=== PATIENT | male | born 1955 | race Caucasian/White ===

== ENCOUNTER → 2018-01-06 | Outpatient (CLI) | payer OTHER ==
--- NOTE | 2018-01-06 16:43 | RAD ---
2 views of the right foot compared to similar study dated August 28, 2013 for pain, diabetic ulcer on the heel. FINDINGS: There is no fracture, dislocation, or acute osseous abdomen identified. There is been amputation of the distal second and fifth digits. There is destructive and erosive change of the first metatarsophalangeal joint with marginal sclerosis and some overgrowth seen on the lateral projection. This is new compared to the prior study. A calcaneal bone spur is seen. Vascular calcifications are evident. IMPRESSION: 1. Extensive destructive changes of the first metatarsophalangeal joint with adjacent sclerosis and bony overgrowth. In the current clinical context, osteomyelitis should be considered. The absence of osteopenia may suggest burned-out or previously treated disease. Consider further evaluation with contrast-enhanced MRI. 2. Postsurgical changes of the second and fifth digits. 3. No acute osseous abdomen modality. Electronically signed by: Amanuel Damico MD (01/06/2018 4:39 PM) [id number]
== END ==
LOC: PMG 10:53
PROVIDERS: ATTEND Physician Assistant
DX: E11.621 Type 2 diabetes mellitus with foot ulcer (principal); L97.416 Non-pressure chronic ulcer of right heel and midfoot with bone involvement without evidence of necrosis; M86.8X7 Other osteomyelitis, ankle and foot; M77.31 Calcaneal spur, right foot
CPT/HCPCS: 73620

== ENCOUNTER → 2018-09-19 | Outpatient (CLI) | payer OTHER ==
--- NOTE | 2018-09-19 14:18 | CARD ---
MR#: [id number] Date of Study: 09/19/2018 Ordering Physician: GRACIELA ACUÑA, Referring Physician: GRACIELA ACUÑA, Tech: Reshma Higuera NATY APPROVED REPORT EXAM: Two-dimensional and M-mode echocardiogram with Doppler and color Doppler. Other Information Quality : AverageHR: 95bpm Rhythm : NSR INDICATION Cardiomyopathy 2D DIMENSIONS RVDd3.0 (2.9-3.5cm)Left Atrium(2D)4.0 (1.6-4.0cm) IVSd1.0 (0.7-1.1cm)Aortic Root(2D)3.0 (2.0-3.7cm) LVDd4.9 (3.9-5.9cm)LVOT Diameter2.1 (1.8-2.4cm) PWd0.8 (0.7-1.1cm)LVDs3.5 (2.5-4.0cm) FS (%) 28.6 %SV61.3 ml LVEF(%)55.0 (>50%) Aortic Valve AoV Peak Ted.118.4cm/sAoV VTI20.2cm AO Peak GR.5.6mmHgLVOT Peak Ted.82.1cm/s LVOT VTI 18.24cmAO Mean GR.3mmHg ABBY (VMAX)2.93rg7IYG (VTI)3.05cm2 Mitral Valve MV E Qpbdqiou13.5cm/sMV DECEL NSQR303qr MV A Mqycoevq11.4cm/sE/A Ratio1.3 Pulmonary Valve PV Peak Pmuwkdxt426.4cm/sPV Peak Grad.5mmHg LEFT VENTRICLE The left ventricle is normal size. There is normal left ventricular wall thickness. The left ventricu lar systolic function is normal and the ejection fraction is within normal range. The Ejection Fracti on is 55%. There is normal LV segmental wall motion. Transmitral Doppler flow pattern is Grade II-pse udonormal filling dynamics. RIGHT VENTRICLE The right ventricle is normal size. There is normal right ventricular wall thickness. The right ventr icular systolic function is normal. ATRIA The left atrium is borderline dilated. The right atrium is mildly dilated. The interatrial septum is intact with no evidence for an atrial septal defect or patent foramen ovale as noted on 2-D or Dopple r imaging. AORTIC VALVE The aortic valve is trileaflet. The aortic valve is mildly calcified. Doppler and Color Flow revealed no significant aortic regurgitation. There is no significant aortic valvular stenosis. There is no a ortic valvular vegetation. MITRAL VALVE The mitral valve is normal in structure and function. There is no evidence of mitral valve prolapse. There is no mitral valve stenosis. Doppler and Color-flow revealed trace to mild mitral regurgitation . TRICUSPID VALVE The tricuspid valve is normal in structure and function. Doppler and Color Flow revealed no tricuspid valve regurgitation noted. There is no tricuspid valve prolapse or vegetation. There is no tricuspid valve stenosis. PULMONIC VALVE Doppler and Color Flow revealed no pulmonic valvular regurgitation. There is no pulmonic valvular risa nosis. GREAT VESSELS The aortic root is normal in size. The ascending aorta is normal in size. The IVC is normal in size a nd collapses >50% with inspiration. PERICARDIAL EFFUSION There is no evidence of significant pericardial effusion. Critical Notification Critical Value: No <Conclusion> The left ventricular systolic function is normal and the ejection fraction is within normal range. Th e Ejection Fraction is 55%. There is normal LV segmental wall motion. Signed by : Graciela Acuña, Electronically Approved : 09/19/2018 14:18:25
== END | disposition home or self-care (01) ==
LOC: ECHO 13:32
PROVIDERS: ATTEND Internal Medicine Cardiovascular Disease
DX: I34.0 Nonrheumatic mitral (valve) insufficiency (principal); I25.5 Ischemic cardiomyopathy
CPT/HCPCS: 93306

== ENCOUNTER → 2019-10-09 | Outpatient (CLI) | payer OTHER ==
--- NOTE | 2019-10-09 12:15 | CARD ---
MR#: [id number] Date of Study: 10/09/2019 Ordering Physician: GRACIELA MONROY, Referring Physician: GRACIELA MONROY, Tech: Rebekah Baltazar APPROVED REPORT EXAM: Two-dimensional and M-mode echocardiogram with Doppler and color Doppler. Other Information Quality : Average INDICATION Cardiomyopathy Surgery/Intervention CABG: Date: 2014 RISK FACTORS Diabetes 2D DIMENSIONS RVDd3.1 (2.9-3.5cm)Left Atrium(2D)3.7 (1.6-4.0cm) IVSd1.2 (0.7-1.1cm)Aortic Root(2D)3.1 (2.0-3.7cm) LVDd4.9 (3.9-5.9cm)LVOT Diameter1.8 (1.8-2.4cm) PWd1.1 (0.7-1.1cm)LVDs4.0 (2.5-4.0cm) FS (%) 17.0 %SV39.5 ml LVEF(%)35.5 (>50%) Aortic Valve AoV Peak Ted.134.0cm/sAoV VTI26.3cm AO Peak GR.7.2mmHgLVOT Peak Ted.88.2cm/s LVOT VTI 17.28cmAO Mean GR.4mmHg ABBY (VMAX)1.42yy2ORU (VTI)1.72cm2 Mitral Valve MV E Rkftwtay06.5cm/sMV E Peak Gr.3mmHg MV DECEL SXBR221ldJB A Mxsrkgvy71.4cm/s MV E Mean Gr.2mmHgE/A Ratio1.0 Pulmonary Valve PV Peak Nvhpggxj29.6cm/sPV Peak Grad.3mmHg Tricuspid Valve TR P. Efjvdzkg227ok/sRAP NXLMDIIY1rqXc TR Peak Gr.11anGlNKOG55xgYh Pulmonary Vein S1 Oiqvmyoa76.5cm/sD2 Qrtpewbk82.7cm/s LEFT VENTRICLE The left ventricle is normal size. There is mild concentric left ventricular hypertrophy. The left ve ntricular systolic function is normal and the ejection fraction is within normal range. The Ejection Fraction is 50%. Septal motion suggestive of prior CABG/conduction defect. Otherwise, there is normal LV segmental wall motion. Transmitral Doppler flow pattern is Grade II-pseudonormal filling dynamics . RIGHT VENTRICLE The right ventricle is normal size. There is normal right ventricular wall thickness. The right ventr icular systolic function is normal. ATRIA The left atrium size is normal. The right atrium size is normal. The interatrial septum is intact wit h no evidence for an atrial septal defect or patent foramen ovale as noted on 2-D or Doppler imaging. AORTIC VALVE The aortic valve is thickened but opens well. Doppler and Color Flow revealed no significant aortic r egurgitation. There is no significant aortic valvular stenosis. Calculated aortic valve area is 1.8 c m2 with maximum pressure gradient of 7 mmHg and mean pressure gradient of 4 mmHg. MITRAL VALVE The mitral valve is normal in structure and function. There is no evidence of mitral valve prolapse. There is no mitral valve stenosis. Doppler and Color Flow revealed no mitral valve regurgitation note d. TRICUSPID VALVE The tricuspid valve is normal in structure and function. Doppler and Color Flow revealed trace tricus pid regurgitation with an estimated PAP of 30 mmHg. There is no tricuspid valve stenosis. PULMONIC VALVE The pulmonic valve is not well visualized. Doppler and Color Flow revealed trace pulmonic valvular re gurgitation. There is no pulmonic valvular stenosis. GREAT VESSELS The aortic root is normal in size. The IVC is normal in size and collapses >50% with inspiration. PERICARDIAL EFFUSION There is no evidence of significant pericardial effusion. Critical Notification Critical Value: No <Conclusion> The left ventricular systolic function is normal and the ejection fraction is within normal range. Th e Ejection Fraction is 50%. Septal motion suggestive of prior CABG/conduction defect. Otherwise, there is normal LV segmental wal l motion. Signed by : Graciela Monroy, Electronically Approved : 10/09/2019 12:15:07
== END | disposition home or self-care (01) ==
LOC: ECHO 10:47
PROVIDERS: ATTEND Internal Medicine Cardiovascular Disease
DX: I25.5 Ischemic cardiomyopathy (principal); I51.7 Cardiomegaly
CPT/HCPCS: 93306

== ENCOUNTER → 2019-10-10 | Outpatient (CLI) | payer OTHER ==
--- NOTE | 2019-10-10 15:04 | RAD ---
MR#: [id number] Date of Study: 10/10/2019 Ordering Physician: GRACIELA MONROY, Referring Physician: GRACIELA MONROY, Tech: Silvia Chang RVT,[facility] APPROVED REPORT Patient Location: OUT-PATIENT Exam Type: Ankle to Brachial Index Indications Numbness/Tingling PAD Left sided GUIDO mildly abnormal at 0.8. Right-sided GUIDO not able to be obtained due to a right prior below-knee amputation. Risk Factors Hypertension Cardiac Disease Diabetes Pressures/Indices RightABI LeftABI Brachial 144mmHgBrachial 148mmHg Ankle(PT) Ankle(PT) 120mmHg Ankle(DP) Ankle(DP) 528buJj6.8 Critical Notification Critical Value: No <Conclusion> 1. Mildly abnormal left side GUIDO is 0.8. Signed by : Graciela Monroy, Electronically Approved : 10/10/2019 15:03:27
--- NOTE | 2019-10-10 17:27 | RAD ---
MR#: [id number] Date of Study: 10/10/2019 Ordering Physician: GRACIELA MONROY, Referring Physician: GRACIELA MONROY, Tech: Silvia Chang RVT, [facility] APPROVED REPORT Patient Location: OUT-PATIENT Laterality:Bilateral Indications Grayscale images demonstrate mild diffuse atherosclerosis mostly localized to the carotid bulbs. Spectral waveforms and color Doppler are overall suggestive of 0 to less than 50% stenosis in the ritu ateral internal carotid arteries. Likely greater than 50% stenosis involving the bilateral external carotid arteries. Antegrade vertebral velocities bilaterally. Normal ICA to CCA ratios bilaterally. Risk Factors Hypertension: Diabetes PAD Doppler Spectral Velocity Analysis Right Left pCCA 103/20 cm/spCCA 109/14 cm/s mCCA 95/20 cm/smCCA 86/16 cm/s dCCA 83/16 cm/sdCCA 81/15 cm/s Bulb Bulb 88/15 cm/s ECA 175/13 cm/sECA 163/16 cm/s pICA 80/25 cm/spICA 50/13 cm/s Hawa 63/26 cm/smICA 46/21 cm/s dICA 58/26 cm/sdICA 48/19 cm/s Vert. 60/17 cm/sVert. 69/19 cm/s ICA/CCA 0.78ICA/CCA 0.46 Critical Notification Critical Value: No <Conclusion> 1. No significant carotid occlusive disease bilaterally Signed by : Graciela Monroy, Electronically Approved : 10/10/2019 17:27:18
--- NOTE | 2019-10-10 17:29 | RAD ---
MR#: [id number] Date of Study: 10/10/2019 Ordering Physician: GRACIELA MONROY, Referring Physician: GRACIELA MONROY, Tech: Silvia Chang Radha,[facility] APPROVED REPORT Patient Location: OUT-PATIENT Indications Numbness/Tingling PAD Upper extremity arterial evaluation was performed in the setting of bilateral hand numbness. On the right side there are elevated velocities at the level of the axillary artery and a biphasic wa ve pattern suggestive of moderate disease. No focal critical obstruction is noted. On the left side no significant obstructive disease is noted. Risk Factors Hypertension Cardiac Disease Diabetes Waveforms Right Left Prox Mid Distal Prox Mid Distal Subcl. Zia-wkvbmwWxm-hqlpwzRpypn. Osq-tlsxrbPlr-gthsns Axillary Bi-phasicAxillary Tri-phasic Brachial Cwh-yvfaaeFcl-uzwxhcTrq-phasicBrachial Flk-fegccxKvu-wctgwfJsf-pha sic Radial Cmx-rialtrOoc-kblizpTuobtb Cwu-raygcjDpf-trndfx Ulnar Rjt-kjtvmlIxc-qxgasmSidlh Zua-owlvkyImx-bmnwul Velocities Right Left Prox Mid Distal Prox Mid Distal Subcl. 139.7cm/s109.9cm/sSubcl. 101.5cm/s55.8cm/s Axillary 259.5cm/sAxillary 104.8cm/s Brachial 91.3cm/s88.0cm/s95.1cm/sBrachial 57.0cm/s69.4cm/s81.0cm/s Radial 74.1cm/s94.5cm/sRadial 86.2cm/s116.4cm/s Ulnar 57.4cm/s48.1cm/sUlnar 53.5cm/s65.7cm/s Critical Notification Critical Value: No <Conclusion> 1. Moderate right axillary arterial stenosis, no significant bilateral disease otherwise with patent radial and ulnar arteries bilaterally. Signed by : Graciela Monroy, Electronically Approved : 10/10/2019 17:29:13
--- NOTE | 2019-10-10 17:32 | RAD ---
MR#: [id number] Date of Study: 10/10/2019 Ordering Physician: GRACIELA MONROY, Referring Physician: GRACIELA MONROY, Tech: Silvia Chang RVT,[facility] APPROVED REPORT Patient Location: OUT-PATIENT Indications Numbness/Tingling PAD Grayscale images of the bilateral lower extremity arterial vessels demonstrates moderate intimal hype rplasia and diffuse atherosclerosis. On the right side the common femoral artery to the popliteal artery velocities are normal with tripha sic wave patterns. There is a below-knee amputation on the right side. On the left side there are triphasic waveforms from the common femoral artery to the popliteal segmen t. There is likely a greater than 75% stenosis involving the proximal posterior tibial artery. The peroneal artery is not visualized. Monophasic waveforms are noted in the anterior tibial artery sugg estive of diffuse calcification. Risk Factors Hypertension Cardiac Disease Diabetes VELOCITY AND DOPPLER WAVEFORM ANALYSIS RIGHT cm/secWaveformSeverity LEFT cm/secWaveform Severity pCFA 85.6TriphasicpCFA 115.0Triphasic Prof Fem Art. 72.0TriphasicProf Fem Art. 69.0Triphasic Fem Art Prox. 74.1TriphasicFem Art Prox. 99.0Triphasic Fem Art Mid. 99.5TriphasicFem Art Mid. 112.1Triphasic Fem Art Dist. 68.9TriphasicFem Art Dist. 127.3Triphasic Pop Art(Fossa) 48.8TriphasicPop Art(AK) 55.2Triphasic CARBON PRINTER Prox. CARBON PRINTER Prox. 244.2Monophasic CARBON PRINTER Dist. CARBON PRINTER Dist. 27.1Biphasic Per Art Prox. Per Art Prox. Occluded MAYUR Dist. MAYUR Dist. 102.7Monophasic DPA DPA 89Monophasic Critical Notification Critical Value: No <Conclusion> 1. No significant right-sided disease 2. Probable greater than 75% stenosis of the left posterior tibial artery, nonvisualized peroneal ar los and mild to moderate diffuse disease of the anterior tibial artery Signed by : Graciela Monroy, Electronically Approved : 10/10/2019 17:31:34
== END ==
LOC: US 07:50
PROVIDERS: ATTEND Internal Medicine Cardiovascular Disease
DX: I70.201 Unspecified atherosclerosis of native arteries of extremities, right leg (principal); I10 Essential (primary) hypertension; E11.9 Type 2 diabetes mellitus without complications; Z89.511 Acquired absence of right leg below knee
CPT/HCPCS: 93880; 93922; 93923; 93930

== ENCOUNTER → 2020-10-21 | Outpatient (CLI) | payer OTHER ==
[~2020-10-21] MED LIST: REGADENOSON 0.4 MG/5 ML DISP.SYRIN. IV ONE
--- NOTE | 2020-10-21 15:09 | RAD ---
MR#: [id number] Date of Study: 10/21/2020 Ordering Physician: ROSELINE DALEY, Referring Physician: DOLORES PEÑA Tech: RT Gricelda (R) (N) APPROVED REPORT Test Type: Pharmacological Stress Nurse/Tech: Brigid Castro/ Carlie Test Indications: CAD Cardiac History: Hx CABG & stent Medications: See EHR Resting Heart Rate: 97 bpm Resting Blood Pressure: 152/87mmHg Pharm. Details Pharmacologic stress testing was performed using 0.4mg per 5ml of regadenoson given intravenously ove r 7-10 seconds. Stress Symptoms Mild dyspnea POST EXERCISE Reason for Termination: Infusion complete Max HR: 112 bpm Blood Pressure response to exercise: Normal blood pressure response during stress. Heart Rate response to exercise: Increased Chest Pain: No. Arrhythmia: No. ST Change: No. INTERPRETATION Stress EKG Conclusion: Baseline EKG showed sinus rhythm with old septal infarct and inferolateral ST depressions. Nondiagnostic changes at peak stress. No arrhythmias. Imaging Protocol IMAGE PROTOCOL: Rest Tc-99m/stress Tc-99m 1 day Rest: Stress: Viability: Radiopharm.Tc99m JoneomyygHb81q Sestamibi Exzk03hTd 33mCi Duration 15min. 15min. Img Date 10/21/2020 10/21/2020 Inj-Img Pmys48kvb. 60min. Rest Admin Site:IV - Right AntecubitalAdministrator: RT Gricelda (R)(N) Stress Admin Site: IV - Right AntecubitalAdministrator: RT Gricelda (R)(N) STRESS DATA End Diast. Vol.98.0mlAv. Heart Fbhx011.0bpm End Syst. Vol.44.0mlCO Index BSA0.0L/min Myocardial Dzzf490.0gEject. Zwrejdwm27.0% Stress Rates Pk. Fill Rate0.83EDV/secLVtime Pk. Fill 81.15msec Pk. Empty Rate4.71ESV/secLVtime Pk. Sivck407.72msec /3 Pk. Fill0.95EDV/sec Stress Scores Regional WT1.00Summed WT9.00 Regional WM0.00Summed WM16.00 LV Perfusion Scintigraphic images showed moderate reversible defect involving the lateral wall consistent with isc hemia. Wall Motion Abnormal septal motion most probably secondary to postoperative state. The ejection fraction was lou culated at 60%. LV Perf. Quant 17 Seg. SSS13.00 17 Seg. SRS5.00 17 Seg. SDS8.00 Stress Defect Extent (% LAD)0.60Rest Defect Extent (% LAD)0.00Rev. Defect Extent (% LAD)0.60 Stress Defect Extent (% LCX) 96.30Rest Defect Extent (% LCX)48.80Rev. Defect Extent (% LCX)96.30 Stress Defect Extent (% RCA)0.00Rest Defect Extent (% RCA)0.00Rev. Defect Extent (% RCA)0.00 Stress Defect Extent (% JERMAN)26.70Rest Defect Extent (% JERMAN)8.50Rev. Defect Extent (% JERMAN)26.10 Conclusion 1. Regadenoson cardioisotope stress test showed moderate amount of lateral wall ischemia. 2. Abnormal septal motion most probably secondary to postoperative state. The ejection fraction was calculated at 60%. 3. Intermediate risk for cardiac events. Signed by : Roseline Daley, Electronically Approved : 10/21/2020 15:09:29
--- NOTE | 2020-10-21 15:24 | CARD ---
MR#: [id number] Date of Study: 10/21/2020 Ordering Physician: GRACIELA ACUÑA, Referring Physician: GRACIELA ACUÑA, Tech: Rebekah Baltazar, [facility] APPROVED REPORT EXAM: Two-dimensional and M-mode echocardiogram with Doppler and color Doppler. Other Information Quality : AverageHR: 114bpm Technically limited study due to Rapid heart rate INDICATION Cardiac Disease: CAD Surgery/Intervention CABG: Date: 2014 Site: [place] RISK FACTORS Hypertension Diabetes 2D DIMENSIONS RVDd2.9 (2.9-3.5cm)Left Atrium(2D)3.1 (1.6-4.0cm) IVSd0.8 (0.7-1.1cm)Aortic Root(2D)3.0 (2.0-3.7cm) LVDd5.0 (3.9-5.9cm)LVOT Diameter2.0 (1.8-2.4cm) PWd0.9 (0.7-1.1cm)LVDs2.9 (2.5-4.0cm) FS (%) 41.3 %SV85.0 ml LVEF(%)72.0 (>50%) Aortic Valve AoV Peak Ted.143.6cm/sAoV VTI25.9cm AO Peak GR.8.2mmHgLVOT Peak Ted.114.2cm/s LVOT VTI 20.09cmAO Mean GR.4mmHg ABBY (VMAX)2.86jh3GXP (VTI)2.34cm2 Pulmonary Valve PV Peak Gcmnigqf096.1cm/sPV Peak Grad.5mmHg Tricuspid Valve TR P. Mfakcjvm013ze/sRAP YFGFWMWV4czRd TR Peak Gr.94uuSdXJOR24ewNe LEFT VENTRICLE The left ventricle is normal size. There is normal left ventricular wall thickness. Basal posterior w all appears hypokinetic. Abnormal septal motion probably secondary to postoperative state. The Ejecti on Fraction is 55%. Transmitral Doppler flow pattern is Grade I-abnormal relaxation pattern. RIGHT VENTRICLE The right ventricle is normal size. There is normal right ventricular wall thickness. The right ventr icular systolic function is normal. ATRIA The left atrium size is normal. The right atrium size is normal. The interatrial septum is intact wit h no evidence for an atrial septal defect or patent foramen ovale as noted on 2-D or Doppler imaging. AORTIC VALVE The aortic valve is calcified but opens well. Doppler and Color Flow revealed no significant aortic r egurgitation. There is no significant aortic valvular stenosis. Calculated aortic valve area is 2.5 c m2 with maximum pressure gradient of 9 mmHg and mean pressure gradient of 5 mmHg. MITRAL VALVE The mitral valve is normal in structure and function. There is no evidence of mitral valve prolapse. There is no mitral valve stenosis. Doppler and Color-flow revealed trace mitral regurgitation. TRICUSPID VALVE The tricuspid valve is normal in structure and function. Doppler and Color Flow revealed trace tricus pid regurgitation with an estimated PAP of 32 mmHg. There is no tricuspid valve stenosis. PULMONIC VALVE The pulmonic valve is not well visualized. Doppler and Color Flow revealed trace pulmonic valvular re gurgitation. GREAT VESSELS The aortic root is normal in size. The ascending aorta is normal in size. The IVC is normal in size a nd collapses >50% with inspiration. PERICARDIAL EFFUSION There is no evidence of significant pericardial effusion. Critical Notification Critical Value: No <Conclusion> Basal posterior wall appears hypokinetic. Abnormal septal motion probably secondary to postoperative state. The Ejection Fraction is 55%. Trace mitral regurgitation. Trace tricuspid regurgitation with an estimated PAP of 32 mmHg. There is no evidence of significant pericardial effusion. Signed by : Art Daley, Electronically Approved : 10/21/2020 15:23:36
--- NOTE | 2020-10-22 17:22 | RAD ---
MR#: [id number] Date of Study: 10/21/2020 Ordering Physician: ROSELINE BEAVERS, Referring Physician: ROSELINE BEAVERS, Tech: Silvia Chang RVT,[facility] APPROVED REPORT Patient Location: OUT-PATIENT Indications PAD Grayscale images of the left lower extremity arterial vessels demonstrates moderate diffuse atheroscl erotic plaque. Spectral waveforms and color Doppler from the common femoral artery to the popliteal segment are unremarkable with normal velocities and triphasic waveforms. Below the knee the posterio r tibial and peroneal artery are not visualized and likely occluded. There is normal biphasic flow i n the anterior tibial artery with robust runoff to the dorsalis pedis vessel. Risk Factors Hypertension Cardiac Disease Diabetes VELOCITY AND DOPPLER WAVEFORM ANALYSIS RIGHT cm/secWaveformSeverity LEFT cm/secWaveform Severity pCFA pCFA 138.0Triphasic Prof Fem Art. Prof Fem Art. 80.0Biphasic Fem Art Prox. Fem Art Prox. 100.0Triphasic Fem Art Mid. Fem Art Mid. 104.0Triphasic Fem Art Dist. Fem Art Dist. 65.0Triphasic Pop Art(Fossa) Pop Art(AK) 50.0Triphasic MAYUR Prox. MAYUR Prox. 81.0Biphasic DPA DPA 115Triphasic Critical Notification Critical Value: No <Conclusion> 1. Severe left lower extremity below-knee disease with one-vessel runoff. Signed by : Reji Monroy, Electronically Approved : 10/22/2020 17:22:45
== END ==
LOC: NM 07:52
PROVIDERS: ATTEND Internal Medicine Cardiovascular Disease
DX: I25.10 Atherosclerotic heart disease of native coronary artery without angina pectoris (principal); I73.9 Peripheral vascular disease, unspecified; I99.8 Other disorder of circulatory system; Z89.512 Acquired absence of left leg below knee
CPT/HCPCS: 78452; 93017; 93306; 93926; A9500; J2785

== ENCOUNTER → 2021-05-28 | Outpatient (CLI) | payer OTHER ==
--- NOTE | 2021-05-29 07:56 | RAD ---
MR#: [id number] Date of Study: 05/28/2021 Ordering Physician: GRACIELA ACUÑA, Referring Physician: GRACIELA ACUÑA, Tech: Silvia Chang RVT, [facility] APPROVED REPORT Left Lower Extremity Venous Study for DVT Patient Location: OUT-PATIENT Indications Lower Extremity Edema: Vein Imaging (Right) CFV (R): Compressible SFJ (R): Compressible FEM (R): Compressible POP (R): Compressible DFV (R): Compressible Critical Notification Critical Value: No <Conclusion> FINDINGS Grayscale images of deep veins left lower extremity were grossly unremarkable with fully compressible common femoral, femoral and popliteal veins. Spectral waveform and color duplex analysis was within normal limits. The calf veins were not visible secondary to edema. No clear evidence of deep venou s thrombosis. CONCLUSIONS Left lower extremity venous duplex scan did not show any obvious deep venous thrombosis. Signed by : Art Daley, Electronically Approved : 05/29/2021 07:55:39
== END ==
LOC: US 08:06
PROVIDERS: ATTEND Internal Medicine Cardiovascular Disease
DX: R60.0 Localized edema (principal)
CPT/HCPCS: 93971

== ENCOUNTER → 2021-06-04 | Outpatient (CLI) | payer OTHER ==
--- NOTE | 2021-06-04 16:31 | RAD ---
MR#: [id number] Date of Study: 06/04/2021 Ordering Physician: GRACIELA MONROY, Referring Physician: GRACIELA MONROY, Tech: Silvia Chang RVT, [facility] APPROVED REPORT Patient Location: OUT-PATIENT Indications PAD Grayscale images of the left lower extremity arterial vessels demonstrates significant calcific disea se. Spectral waveforms are triphasic from the common femoral artery to the distal SFA. Monophasic wavefo alyssa are noted at the level of the popliteal artery. Below the knee the vessels are not patent with m onophasic waveforms noted in the dorsalis pedis vessels. Of note, the vessels were not well visualiz ed below the knee due to significant edema most consistent with likely patient's history of lymphedem a. Risk Factors Hypertension VELOCITY AND DOPPLER WAVEFORM ANALYSIS RIGHT cm/secWaveformSeverity LEFT cm/secWaveform Severity pCFA pCFA 86.8Triphasic Prof Fem Art. Prof Fem Art. 61.0Triphasic Fem Art Prox. Fem Art Prox. 108.2Triphasic Fem Art Mid. Fem Art Mid. 109.3Triphasic Fem Art Dist. Fem Art Dist. 133.0Triphasic Pop Art(Fossa) Pop Art(AK) 89.1Monophasic DPA DPA 47Monophasic Critical Notification Critical Value: No <Conclusion> 1. No significant above-knee disease 2. Nonvisualized posterior tibial, peroneal and anterior tibial vessels. Probably limited due to mohan dy habitus. 3. Monophasic waveforms at the level of the dorsalis pedis artery Signed by : Graciela Monroy, Electronically Approved : 06/04/2021 16:31:05
== END ==
LOC: US 08:36
PROVIDERS: ATTEND Internal Medicine Cardiovascular Disease
DX: I70.202 Unspecified atherosclerosis of native arteries of extremities, left leg (principal)
CPT/HCPCS: 93926